=== PATIENT | male | born 1965 | race Two or more races ===

== ENCOUNTER 2020-08-08 19:09 | Emergency (ER) | payer OTHER ==
[2020-08-08 19:16] VITALS: BP 189/96
--- NOTE | 2020-08-08 19:46 | ED Physician Documentation ---
History of Present Illness - Stated complaint Stated Complaint: NECK BUMP/CHILLS - Chief complaint Chief Complaint: Laceration - Additonal information Additional information: 54-year-old male presents to the emergency department for evaluation of chills that lasted about 45 minutes before he arrived at the emergency department. He reports that for about 3 days he has been having a draining carbuncle on the back of his head/neck. This is a common occurrence for him. In fact he feels that the carbuncle is improving in size and appearance but this afternoon when he got home from work he suddenly developed chills and rigors that prompted his concern. He is mostly concerned because his once had an overwhelming infection that landed her in the hospital for 5 days. Patient denies any diabetes, denies chest pain or shortness of breath. No abdominal pain no headache. No neck pain other than that the source of his carbuncle. No dysuria urgency or frequency. Review of Systems Constitutional: reports: Chills, Myalgias. denies: Fatigue, Weight Loss Eyes: reports: Reviewed and negative Ears: reports: Reviewed and negative Nose: reports: Reviewed and negative Throat: reports: Reviewed and negative Cardiac: reports: Reviewed and negative Respiratory: reports: Reviewed and negative GI: reports: Reviewed and negative : reports: Reviewed and negative Skin: reports: Lesions (Healing carbuncles at the base of his right occiput) Neurologic: reports: Reviewed and negative Psychiatric: reports: Reviewed and negative PD PAST MEDICAL HISTORY - Present Medications Home Medications: Ambulatory Orders Medication Instructions Recorded Confirmed Sulfamethox/Trimeth 800/160 1 each PO BID #14 tablet 08/08/20 [Bactrim Ds 800/160] - Allergies Allergies/Adverse Reactions: Allergies Allergy/AdvReac Type Severity Reaction Status Date / Time No Known Drug Allergies Allergy Verified 08/08/20 19:13 PD ED PE EXPANDED - General General: Alert, No acute distress, Well developed/nourished - Neck Neck: Supple w/out meningeal sx, Other (Multiple healing carbuncles base of occiput/neck). No: Adenopathy - Cardiac Cardiac: Regular Rate, Regular Rhythm, Radial strong equal, Pedal strong equal, Cap refill < 2 sec - Respiratory Respiratory: Clear to ausultation bruce. No: Distress, Labored - Abdomen Abdomen: Normal Bowel sounds. No: Tender to palpation - Derm Derm: Other (Multiple carbuncles in various stages of healing base of right occiput/neck) - Extremities Extremities: Normal. No: Deformity, Tenderness - Neuro Neuro: Alert and Oriented X 3, CNII-XII intact - GCS Eye Opening: Spontaneous Motor: Obeys Commands Verbal: Oriented Total: 15 Results - Vitals Vitals: Vital Signs - 24 hr 08/08/20 19:13 Temperature 37.0 C Heart Rate 98 Respiratory 19 Rate Blood Pressure 189/96 H O2 Saturation 98 Oxygen O2 Source Room air PD MEDICAL DECISION MAKING - ED course Complexity details: reviewed results, re-evaluated patient, d/w patient ED course: This is a very well-appearing 54-year-old male that presents the emergency department for evaluation of a brief episode of rigors and chills that lasted about 45 minutes before he came to the emergency department. He denies that he had fever and he has no fever here on presentation. His constitutional symptoms are also very limiting. No chest pain, cough congestion abdominal pain nausea vomiting diarrhea dysuria. On exam he has carbuncles at the base of his right occiput that are in various stages of healing. Patient reports that he typically uses a warm compress or a heated shower to help them drain. He declines incision and drainage today. He is here mostly because his was concerned when he developed rigors. His cardiopulmonary and physical exam are otherwise unrevealing. At this time he will be discharged home. We discussed routine care of the carbuncles and I will write a prescription for Bactrim to be initiated only if these fail to resolve as they typically do. Emergent return precautions were discussed Departure - Departure Disposition: 01 Home, Self Care Clinical Impression: Carbuncle and furuncle Condition: Stable Record reviewed to determine appropriate education?: Yes Prescriptions: Sulfamethox/Trimeth 800/160 [Bactrim Ds 800/160] 1 each PO BID #14 tablet Comments: Byron as we discussed it is unclear with the chills and rigors that you had were due to however it does not appear to be an overwhelming infection in your body. You do have healing carbuncles in front of [place] at the base of your neck. I would like you to continue to use the warm compress and he did shower to help these open and drain. If you feel that they are not improving then please fill the prescription for the Bactrim and begin taking as directed. Return to the emergency department if you develop fevers, have suddenly severe abdominal pain, chest pain or shortness of breath.
--- OUTSIDE RECORDS SUMMARY | 2020-08-09 03:26 | EXTERNAL MEDICAL SUMMARY RPT | Continuity of Care Document ---
:1965 Demographics Phone Unavailable Preferred Language Unknown Marital Status Unknown Episcopalian Affiliation Unknown Race Unknown Ethnic Group Unknown Author Organization [place] Address [address] [phone] Phone Social History date description facility [phone]
--- OUTSIDE RECORDS SUMMARY | 2020-08-09 03:26 | EXTERNAL MEDICAL SUMMARY RPT | Continuity of Care Document ---
:1965 Demographics Phone Unavailable Preferred Language Unknown Marital Status Unknown Holiness Affiliation Unknown Race Unknown Ethnic Group Unknown Author Organization [place] Address [address] [phone] Phone Social History date description facility [phone]
== END 2020-08-08 19:57 | disposition home or self-care (01) ==
LOC: ED 19:09
DX: L02.13 Carbuncle of neck (principal); R68.83 Chills (without fever); R68.89 Other general symptoms and signs
CPT/HCPCS: 99282; 99284

== ENCOUNTER 2020-10-23 10:13 | Emergency (ER) | payer OTHER ==
[2020-10-23] MEDS ORDERED: predniSONE 20 MG TABLET PO STA (12:27)
[2020-10-23] MEDS ORDERED: methocarbamoL 500 MG TABLET PO STA (12:27)
[2020-10-23] MEDS ORDERED: oxyCODONE 5 MG TABLET PO STA (12:27)
--- NOTE | 2020-10-23 12:46 | ED Physician Documentation ---
PD HPI BACK PAIN - Stated complaint Stated Complaint: LOW BACK PX - Chief complaint Chief Complaint: Back Pain - History obtained from History obtained from: Patient - History of Present Illness Timing - onset: How many days ago (several) Timing - duration: Days Timing - details: Gradual onset Pain level max: 8 Pain level now: 6 Location: Lower, Right, Left Quality: Pain, Spasm, Similar to prior episodes Associated symptoms: No: Fever, Weakness, Numbness, Incontinent of urine, Unable to urinate, Hematuria, Incontinent of stool Improves with: Rest Worsened by: Movement Contributing factors: Lifting. No: IVDA - Additional information Additional information: Patient is a 55-year-old male who states that he was lifting a bag of soil at [employer] when he felt a spasm in his lower back. Similar to prior back injuries. States that it felt slightly better with a hot tub and Aleve. Then worked on his tractor and his back tightened up again. He does not use IV drugs. No fevers. No chills. No trauma. Has a history of chronic back pain. Review of Systems Constitutional: denies: Fever, Chills GI: denies: Vomiting, Diarrhea : denies: Unable to Void, Incontinent Skin: denies: Rash Musculoskeletal: denies: Neck pain PD PAST MEDICAL HISTORY - Past Medical History Past Medical History: Yes Cardiovascular: None Respiratory: None Neuro: None HEENT: None Musculoskeletal: Other - Present Medications Home Medications: Ambulatory Orders Medication Instructions Recorded Confirmed Sulfamethox/Trimeth 800/160 1 each PO BID #14 tablet 08/08/20 [Bactrim Ds 800/160] Ibuprofen [Motrin] 800 mg PO Q8H PRN #30 tablet 10/23/20 Oxycodone HCl/Acetaminophen 1 - 2 each PO Q6H PRN #14 tablet 10/23/20 [Percocet 5-325 mg Tablet] methocarbamoL [Robaxin] 500 mg PO Q6H PRN #20 tablet 10/23/20 predniSONE [Deltasone] 10 mg PO [id number] #42 tab 10/23/20 - Allergies Allergies/Adverse Reactions: Allergies Allergy/AdvReac Type Severity Reaction Status Date / Time No Known Drug Allergies Allergy Verified 10/23/20 10:39 - Social History Does the pt smoke?: No Smoking Status: Never smoker Does the pt drink ETOH?: Yes Does the pt have substance abuse?: No - Immunizations Immunizations are current?: Yes PD ED PE NORMAL - Vitals Vital signs reviewed: Yes - General General: Alert and oriented X 3, No acute distress - HEENT HEENT: Moist mucous membranes - Neck Neck: Supple, no meningeal sign - Cardiac Cardiac: RRR - Respiratory Respiratory: No respiratory distress, Clear bilaterally - Abdomen Abdomen: Soft, Non tender, Non distended - Back Back: No spinal TTP, Other (No midline neck tenderness to palpation or percussion. No step-off or deformity. Paraspinal spasm right greater than left.) - Derm Derm: Warm and dry - Extremities Extremities: No edema, No calf tenderness / cord - Neuro Neuro: Alert and oriented X 3, No motor deficit, No sensory deficit, Other (Normal bilateral lower extremity patellar and ankle jerk reflexes. Normal great toe extension bilaterally. no saddle anesthesia) Results - Vitals Vitals: Vital Signs - 24 hr 10/23/20 10/23/20 10:37 12:50 Temperature 36.2 C L 36.5 C Heart Rate 71 70 Respiratory 16 16 Rate Blood Pressure 133/95 H 128/88 H O2 Saturation 95 96 Oxygen O2 Source Room air PD MEDICAL DECISION MAKING - ED course Complexity details: considered differential (No cauda equina, no spinal epidural abscess, no fracture, no aortic dissection or evidence of aneursym rupture), d/w patient ED course: Patient with back spasm. No loss of bowel or bladder control. No evidence of cauda equina, epidural abscess. No indication for emergent imaging. Ambulating in the emergency department. We will place on pain medication, muscle relaxants and steroids for home. I am prescribing a short course of short-acting opioid pain medication for this patient. I have reviewed the patients [employer] SAL[employer]PRESENTATIVE and no concerning findings were noted. I have discussed that the opioids are for short term therapy only, and will not be refilled from the ED. Patient counseled regarding signs and symptoms for which I believe and urgent re- evaluation would be necessary. Patient with good understanding of and agreement to plan and is comfortable going home at this time This document was made in part using voice recognition software. While efforts are made to proofread this document, sound alike and grammatical errors may occur. Departure - Departure Disposition: 01 Home, Self Care Clinical Impression: Back spasm Condition: Good Instructions: ED Low Back Pain Injury Follow-Up: your,doctor in 1 week [Other] Prescriptions: predniSONE [Deltasone] 10 mg PO [id number] #42 tab Ibuprofen [Motrin] 800 mg PO Q8H PRN #30 tablet PRN Reason: PAIN &/OR FEVER Oxycodone HCl/Acetaminophen [Percocet 5-325 mg Tablet] 1 - 2 each PO Q6H PRN #14 tablet PRN Reason: pain methocarbamoL [Robaxin] 500 mg PO Q6H PRN #20 tablet PRN Reason: muscle spasm Comments: Use the medications as prescribed. Return if you worsen. Follow-up with your doctor for further care. Continue to gently stretch her back. Avoid heavy lifting and repetitive movements with your back. I am prescribing a short course of narcotic pain medication for you. These are potentially dangerous and addictive medications that should be used carefully. These medications may constipate you. Take an [id number] stool softener (docusate) twice daily with plenty of water while taking these medications. If you go 24 hours without a bowel movement, take [id number] miralax, per package instructions. Do not drink or drive while taking these medications. If you received narcotic or sedating medications while in the emergency department, do not drive for 24 hours. Store this medication in a safe, secure place and out of reach of children. It is a violation of federal law to give or sell this medication to another person or to use in a manner other than prescribed. The ED will not refill narcotic prescriptions, including prescriptions lost or stolen. To dispose of unwanted medications: 1. [facility] at [address] in [place] has a medication drop box. They accept prescription medications (in pill form) Friday through Friday 9:00 a.m. to 5:00 p.m. 2. The [facility] accepts prescription medications (in pill form only) for disposal year round. Call for more i nformation. 3. Contact the [facility] for the next [facility] sponsored prescription drug collection event. , [phone], or [phone]; Discharge Date/Time: 10/23/20 12:50
[2020-10-23 12:51] VITALS: BP 128/88
== END 2020-10-23 12:50 | disposition home or self-care (01) ==
LOC: ED 10:13
DX: M62.830 Muscle spasm of back (principal); M54.5 Low back pain; G89.29 Other chronic pain
CPT/HCPCS: 99284; A9270; J7512